=== PATIENT | male | born 1950 | race Caucasian/White ===

== ENCOUNTER 2017-03-06 02:14 | Emergency (ER) | payer MEDICARE ==
[~2017-03-06] VITALS: Ht 182.9 cm; Wt 106.4 kg
[~2017-03-06 02:14] MED LIST: ALBU0.63 INH; AZIT250T89 PO; BORON PO; CEFU500T PO; DOCU-30 PO; DOXY100C2 PO; FISH OIL PO; FLAX PO; FURO-93 PO; LISI-170 PO; MULT-658 PO; NIAC500T8 PO; OMEP-110 PO; OXYGEN INH; POTA10TA PO; POTA90TA2 PO; PRED10TA PO; SERT50TA5 PO; vitamin b 12
[2017-03-06 02:16] VITALS: BP 120/75
[2017-03-06] MEDS ORDERED: ALBUTEROL SULFATE 2.5 MG/3 ML ONE (02:47)
[2017-03-06] MEDS ORDERED: ALBUTEROL SULFATE 2.5 MG/3 ML NPPB ONE (03:00)
== END 2017-03-06 03:19 | disposition left against medical advice (07) ==
LOC: ED 02:59
DX: J44.1 Chronic obstructive pulmonary disease with (acute) exacerbation (principal); R06.00 Dyspnea, unspecified; I10 Essential (primary) hypertension; Z87.891 Personal history of nicotine dependence
CPT/HCPCS: 71020; 94640; 99284; J7613

== ENCOUNTER 2017-05-03 05:47 | Emergency (ER) | payer MEDICARE ==
[~2017-05-03] VITALS: Ht 182.9 cm; Wt 101.0 kg
[2017-05-03 05:50] VITALS: BP 159/84
== END 2017-05-03 06:58 | disposition home or self-care (01) ==
LOC: ED 06:35
DX: Z76.0 Encounter for issue of repeat prescription (principal); T16.2XXA Foreign body in left ear, initial encounter; J44.9 Chronic obstructive pulmonary disease, unspecified; E78.00 Pure hypercholesterolemia, unspecified; I11.0 Hypertensive heart disease with heart failure; I50.9 Heart failure, unspecified; Z87.891 Personal history of nicotine dependence; X58.XXXA Exposure to other specified factors, initial encounter; Y93.89 Activity, other specified; Y92.89 Other specified places as the place of occurrence of the external cause; Y99.9 Unspecified external cause status
CPT/HCPCS: 69200; 99284